=== PATIENT | male | born 1970 | race Caucasian/White ===

== ENCOUNTER → 2020-08-22 01:48 | Outpatient (CLI) | payer OTHER, SELFPAY ==
[2020-08-23 19:27] LABS: SARS-CoV-2 RNA PCR Negative
== END ==
PROVIDERS: PCP Internal Medicine; Visit Provider Internal Medicine Gastroenterology
DX: Z01.812 Encounter for preprocedural laboratory examination (principal); Z20.822 Contact with and (suspected) exposure to COVID-19
CPT/HCPCS: C9803; U0003; U0005

== ENCOUNTER 2020-08-25 02:15 | Day surgery (SDC) | payer OTHER, SELFPAY ==
[2020-08-21 10:30] VITALS: BMI 23.6
[2020-08-25 09:57] VITALS: BP 105/64; PULSE 53; RESP 16; TEMP 36.2; O2SAT 100
[2020-08-25] MEDS: LACTATED RINGERS 1,000 ML 150 ML IV CONT (10:06)
--- NOTE | 2020-08-25 10:09 | P.PNAN_ITS ---
Anes - Initial Pre Proc Eval Procedure: Operation Date: 08/25/20 11:00 Proposed Procedures p Screening Colonoscopy - Harpreet Julian MD Date/Time: 08/25/20 10:09 Surgeon: Harpreet Julian MD Pre Op Diagnosis: neoplasm screening, family hx colon ca Patient Data Age: 50 Gender: M Height: 5 ft 11 in Weight: 77.5 kg Last Vital Signs Temp 97.1 F L 08/25/20 09:57 Pulse 53 L 08/25/20 09:57 Resp 16 08/25/20 09:57 BP 105/64 08/25/20 09:57 Pulse Ox 100 08/25/20 09:57 Allergies Allergy/AdvReac Type Severity Reaction Status Date / Time Poultry Allergy Intermediate TIGHTNESS Unverified 08/25/20 09:53 IN CHEST, HOT Home Medications Medication Instructions Recorded Confirmed Type sodium,potassium,mag sulfates 17.5 See Rx Instructions PO .COMPLEX 08/16/20 08/25/20 Rx gram-3.13 gram-1.6 gram oral soln #354 ml fdwffzsk-gpf-kvyic-vit K-lycop 1 tablet PO DAILY 08/21/20 08/25/20 History [Men's Multivitamin] omega-3 fatty acids-vitamin E 2 cap PO DAILY 08/21/20 08/25/20 History [Fish Oil] Patient hx anesthesia problems: none Family hx anesthesia problems: none [facility] Past Medical History Medical History (Updated 08/25/20 @ 10:15 by Harpreet Julian MD) Asthma exercise induced Social History Social History Smoking status: Never smoker Living arrangements: with family Spiritual care concerns: No Anes - Eval Final PreProcedure Day of Procedure 08/25/20 10:09 Patient weight: normal Heart: regular rate and rhythm Lungs: clear to auscultation Airway: Mallampati scale class II Neurological: alert and oriented Last oral intake: >/= 8 hours ASA classification: II Emergent: no Anesthetic plan: proceed Anesthesia type and monitoring: general GIVS and standard monitoring Informed Consent: The patient's anesthetic plan and its attendant risks and benefits were discussed with the patient/family/POA. Questions were solicited and answers provided to the satisfaction of the patient/family/POA.
--- NOTE | 2020-08-25 10:14 | PM.HPGS ---
History of Present Illness History of Present Illness Consent: Risks, benefits, and alternatives have been discussed and questions answered. Patient agrees to proceed with procedure. Chief complaint: neoplasm screening, family hx colon ca Narrative: Leonardo Esteves is a 50 year old male with a family history of colon cancer. He is here for colon cancer screening Review of Systems Review of Systems: All systems reviewed & are unremarkable except as noted in HPI and below PMFSH Past Medical History Medical History Asthma exercise induced Social History Social History Smoking status: Never smoker Living arrangements: with family Spiritual care concerns: No Meds Home Medications and Allergies Home Medications Medication Instructions Recorded Confirmed Type sodium,potassium,mag sulfates 17.5 See Rx Instructions PO .COMPLEX 08/16/20 08/25/20 Rx gram-3.13 gram-1.6 gram oral soln #354 ml ijjdzhil-szr-evful-vit K-lycop 1 tablet PO DAILY 08/21/20 08/25/20 History [Men's Multivitamin] omega-3 fatty acids-vitamin E 2 cap PO DAILY 08/21/20 08/25/20 History [Fish Oil] Allergies Allergy/AdvReac Type Severity Reaction Status Date / Time Poultry Allergy Intermediate TIGHTNESS Unverified 08/25/20 09:53 IN CHEST, HOT Vital Signs Vital Signs - 24 hr 08/25/20 09:57 Temperature 36.2 C L Pulse Rate 53 L Respiratory Rate 16 Blood Pressure 105/64 Pulse Oximetry 100 Exam Resp: Auscultation: clear to auscultation bilaterally Cardio: Rate: regular rate Rhythm: regular rhythm GI: GI Palp: Yes Soft to palpation and No Tenderness to palpation present (GI) Assessment and Plan Assessment and plan (1) Colon cancer screening: Code(s): Z12.11 - Encounter for screening for malignant neoplasm of colon Status: Acute Assessment and Plan: Colonoscopy with possible biopsy or polypectomy or cautery or injection of substances.
[2020-08-25 11:13] VITALS: BP 113/73; PULSE 60; RESP 18; O2SAT 98
[2020-08-25 11:23] VITALS: BP 100/66; PULSE 50; RESP 17; O2SAT 98
[2020-08-25 11:33] VITALS: BP 109/69; PULSE 57; RESP 20; O2SAT 100
== END 2020-08-25 11:43 | disposition home or self-care (01) ==
PROVIDERS: PCP Internal Medicine; Visit Provider Internal Medicine Gastroenterology
PROC: 0DJD8ZZ Inspection of Lower Intestinal Tract, Via Natural or Artificial Opening Endoscopic (ICD-10-PCS; CPT 45378; principal; 2020-08-25 11:00)
DX: Z12.11 Encounter for screening for malignant neoplasm of colon (principal); K57.30 Diverticulosis of large intestine without perforation or abscess without bleeding; Z80.0 Family history of malignant neoplasm of digestive organs; G43.909 Migraine, unspecified, not intractable, without status migrainosus
CPT/HCPCS: 45378; J2001; J2704; J7120